=== PATIENT | male | born 1980 | race Asian ===

== ENCOUNTER 2020-07-23 23:14 | Emergency (ER) | payer MEDICARE, MEDICAID ==
[~2020-07-23] VITALS: Ht 172.7 cm; Wt 73.0 kg
[2020-07-24 00:34] LABS: BASOPHILS % 0.4 % (0.0-2.0); LYMPHOCYTES % 11.8 % (20.0-50.0); MEAN CORPUSCULAR HEMOGLOBIN 30.8 pg (28.0-32.0); MEAN CORPUSCULAR VOLUME 90.3 fL (80.0-94.0); MEAN PLATELET VOLUME 7.3 fl (7.4-10.4); MONOCYTES % 12.1 % (2.0-8.0); NEUTROPHILS % 75.7 % (40.0-76.0); PLATELET 457 x1000/uL (130-400); RED BLOOD CELL COUNT 3.88 mill/uL (4.7-6.1)
[2020-07-24 00:35] LABS: CLARITY URINE CLEAR (CLEAR); COLOR URINE DK YELLOW (YELLOW); KETONES URINE 1+ (NEGATIVE); LEUKOCYTE ESTERASE URINE NEGATIVE (NEGATIVE); NITRITE URINE NEGATIVE (NEGATIVE); OCCULT BLOOD URINE 1+ (NEGATIVE); PH URINE 5.5 (4.5-8.0); PROTEIN URINE TRACE (NEGATIVE); SPECIFIC GRAVITY URINE 1.031 (1.005-1.030)
[2020-07-24 00:40] LABS: CHLORIDE 101 mEq/L (98-107)
[2020-07-24 00:44] LABS: ETHANOL BLOOD < 10 mg/dL
[2020-07-24 00:48] LABS: *AMPHETAMINES SCREEN URINE PRESUMTIVE POSITIVE (NEGATIVE); *BARBITURATES SCREEN URINE NEGATIVE (NEGATIVE); *BENZODIAZEPINES SCREEN URINE NEGATIVE (NEGATIVE); *COCAINE SCREEN URINE NEGATIVE (NEGATIVE); METHADONE URINE SCREEN NEGATIVE (NEGATIVE); OPIATES URINE SCREEN NEGATIVE (NEGATIVE); PHENCYCLIDINE URINE SCREEN NEGATIVE (NEGATIVE)
[2020-07-24 00:49] LABS: CANNABINOID URINE SCREEN NEGATIVE (NEGATIVE)
[2020-07-24 10:20] VITALS: BP 117/78
== END 2020-07-24 14:12 | disposition home or self-care (01) ==
LOC: ER 23:14
DX: T43.621A Poisoning by amphetamines, accidental (unintentional), initial encounter (principal); F32.9 Major depressive disorder, single episode, unspecified; Z59.0 Homelessness; Y92.488 Other paved roadways as the place of occurrence of the external cause
CPT/HCPCS: 36415; 80053; 80305; 80307; 80320; 80329; 81003; 85025; 87426; 93005; 99285; G0480

== ENCOUNTER 2022-02-20 02:28 | Emergency (ER) | payer MEDICARE, MEDICAID ==
[~2022-02-20] VITALS: Ht 170.2 cm; Wt 75.0 kg
[2022-02-20 03:52] LABS: BASOPHILS % 0.1 % (0.0-2.0); EOSINOPHILS % 0.1 % (0.0-5.0); HEMOGLOBIN. 14.6 g/dL (14.0-18.0); MEAN CORPUSCULAR VOLUME 88.6 fL (80.0-94.0); MEAN PLATELET VOLUME 6.8 fl (7.4-10.4); MONOCYTES % 9.2 % (2.0-8.0); NEUTROPHILS % 77.6 % (40.0-76.0); PLATELET 418 x1000/uL (130-400); RED BLOOD CELL COUNT 4.86 mill/uL (4.7-6.1)
[2022-02-20 04:02] LABS: CHLORIDE 95 mEq/L (98-107)
[2022-02-20 04:08] LABS: ETHANOL BLOOD < 10 mg/dL
[2022-02-20 04:34] LABS: *AMPHETAMINES SCREEN URINE PRESUMTIVE POSITIVE (NEGATIVE); *BARBITURATES SCREEN URINE NEGATIVE (NEGATIVE); *BENZODIAZEPINES SCREEN URINE NEGATIVE (NEGATIVE); *COCAINE SCREEN URINE NEGATIVE (NEGATIVE); CANNABINOID URINE SCREEN NEGATIVE (NEGATIVE); METHADONE URINE SCREEN NEGATIVE (NEGATIVE); OPIATES URINE SCREEN NEGATIVE (NEGATIVE); PHENCYCLIDINE URINE SCREEN NEGATIVE (NEGATIVE)
[2022-02-20] MEDS: QUETIAPINE FUMARATE 50MG TABLET PO SCH ×2 (12:51→23:00)
[2022-02-20] MEDS ORDERED: ACETAMINOPHEN 325MG TABLET PO ONE ×2 (14:45→23:30)
[2022-02-20] MEDS ORDERED: POTASSIUM CHLORIDE 20MEQ TABLET SR PO ONE (22:45)
[2022-02-20] MEDS ORDERED: OLANZAPINE 10 MG/VIAL IM ONE (22:45)
[2022-02-21] MEDS ORDERED: BENZTROPINE MESYLATE 1 MG/ML 2ML VIAL IM ONE (00:30)
[2022-02-21] MEDS ORDERED: LORAZEPAM 2MG/ML CPJ IM PRN (00:30)
[2022-02-21] MEDS: QUETIAPINE FUMARATE 50MG TABLET PO SCH (09:18)
[2022-02-21 15:00] VITALS: BP 114/63
== END 2022-02-21 17:33 ==
LOC: ER 02:38
DX: F25.9 Schizoaffective disorder, unspecified (principal); F32.A Depression, unspecified; R45.851 Suicidal ideations; F15.10 Other stimulant abuse, uncomplicated; Z75.1 Person awaiting admission to adequate facility elsewhere; Z20.822 Contact with and (suspected) exposure to COVID-19
CPT/HCPCS: 36415; 80053; 80305; 80307; 80320; 80329; 85025; 87426; 93005; 96372; 99285; C9803; J0515; J2060; J3490; G0480